=== PATIENT | male | born 1980 | race Caucasian/White ===

== ENCOUNTER → 2025-01-30 | Outpatient (CLI) | payer OTHER, SELFPAY ==
--- OUTSIDE RECORDS SUMMARY | 2025-01-30 07:18 | XMS RPT_ITS | CCD ---
Author Organization [facility] Inform ion Partnership [facility] Care Team Providers Care Obstetric Anaesthetist Name Role Phone Unavailable Primary Care Provider Unavailabl e Medications Current Medications Medication Drug Class(es) Dates Sig (Normalized) Sig (Original) Loratadine (1 source) LORATADINE (CLAR ITIN ORAL) Take by mouth. Active Results Test Name Value Interpretation Reference Range Facil ity Urgent Care Visit Reporton 1 Urgent Care Visit Report [facility] [address] [place] [address] 6 [place] [address] OFFICE VISIT Date of Service: 04/07/21 MR#: [id number] Acct: [id number] Name: ROCAEL HEART Rep #: [id number] : 1980 Provider: DARWIN Spencer Age/Sex: 41/M Location: [facility] Status: Signed Intake Vital Signs 04/07/21 08:19 Height 5 ft 9.5 in Weight: 195 lb BMI 28.3 BP 144/96 H Blood Pressure Location Lt brachial Position Sitting Respiration 15 Pulse 82 Pulse Source Monitor Temp 97.8 F Temp Source Temporal Pulse Oximetry (%) 98 Oxygen Delivery Method room air Intake Visit Reasons: STUFFY NOSE/SORE THROAT/COVID TEST Allergies No Known Allergies Allergy (Unverified 04/07/21 08:20) Medications NK 04/07/21 [History Confirmed 04/07/21] HPI HPI Details: ROCAEL HEART, is a 41 M who presents to the office today for complaint stuffy nose and scratchy throat. Patient states that his child and both tested positive for Covid yesterday. He denies fever, chills, sweats. No cough, shortness of breath or difficulty breathing. No other associated symptoms or alleviating/aggravating factors. ROS Const Constitutional: Positive for other (6 system ROS completed with pertinent findings in the HPI otherwise normal.) Exam Const General: cooperative and well developed HENKY Head: normal to inspection and atraumatic Ears: hearing grossly normal bilaterally Nose: nasal discharge clear Face and sinus: normal facial exam Mouth: oral mucosae normal Throat: abnormal tonsil bilaterally hypertrophy 1+ Resp Effort Inspection: normal respiratory effort and no audible wheezes Auscultation: Bilateral: Clear to Auscultation Cardio Palpation: normal PMI Rate: regular rate Rhythm: regular rhythm Neuro General: patient alert and CN's II-XI intact bilaterally Psych Appearance: grossly normal Mental Status: mental status grossly normal Coding Level of Care Code Off vis,new,level 3 Diagnoses Acute upper respiratory infection J06.9 Assessment and Plan Assessment and Plan (1) Acute upper respiratory infection: Status: Acute Plan - Clark WYATT PA: Patient tested negative for Covid in the office today. Encouraged to get plenty of rest, drink lots of clear liquids, and use Tylenol or Ibuprofen (unless contraindicated) for fever and comfort. Darwin rocha also educated on other symptomatic management techniques. To be seen in 7-10 days if no improvement; sooner if worsening of symptoms. Patient advised of potential red flags and when appropriate to report to the ED. Patient verbalized understanding and agreement with all the above. Plan Details Other Orders: Orders: POC Rapid SARS Antigen Today Z11.52 04/07/21 0833 Date Clark WYATT Cosigner Signature: Date (if applicable) CC: Normal [facility] 03-11-[address] [facility] Telephone (UCWSTR) ROCAEL HEART ([id number]) 1980 M Date Time Provider Department 03/11/21 RADHA LANGLEY [facility] During your visit today, we recorded the following information about you: Radha Langley APRN.CALENDER SUPERVISOR 03/11/2021 8:11 AM Signed Please notify of negative covid test results thank you. Rene Lopez MA 03/11/2021 10:55 AM Signed Patient notified of negative results, verbalized understanding. Rene Lopez MA Allergies As of Date: 03/11/2021 (No Known Allergies) Date Reviewed: 03/10/2021 Reviewed by: Vivian León - Fully Assessed Reason for Visit: Results [95] Prescriptions as of 03/11/2021 - amoxicillin-clavulanic acid (AUGMENTIN) 875-125 mg per tablet Take 1 tablet by mouth twice daily for 10 days. - LORATADINE (CLARITIN ORAL) Take by mouth. Problem List As Of Date: 03/11/2021 (None) Encounter Status:Closed by RENE LOPEZ on 03/11/21 [facility] CNOVon 03-10-2021 CNOV Office Visit (UCWSTR ) ROCAEL HEART ([id number]) 1980 M Date Time Provider Department 03/10/21 9:30 AM MAG FAUST During your visit today, we recorded the following information about you: Temperature Pulse Respiration Blood pressure 96.9 degrees 88/minute 16/minute 182/110 Weight 88 kg Mag Faust APRN.CNP 03/10/2021 10:06 AM Signed SUBJECTIVE Rocael López lSy is a 41 year old male who presents with 2 weeks of symptoms that are stable. Symptoms include: Fever (?100.4F): No or Chills: No Cough: Yes, only in the moring Shortness of breath: No or Difficulty breathing: No Fatigue: No Muscle aches: No Headache: Yes-frontal sinus pain New loss of smell or taste: No Sore throat: No Nasal congestion: Yes or Rhinorrhea: Yes Nausea: No or Vomiting: No Diarrhea: No OTC meds/remedies that patient has tried: pseudoephedrine. High risk category assessment No high risk factors Exposures: Sick contacts? No Family or close contacts with confirmed/probable COVID-19 in last 14 days? No He reports that he has never smoked. He has never used smokeless tobacco. BP 182/110 Pulse 88 Temp 36.1 ?C (96.9 ?F) Resp 16 Wt 88 kg (194 lb) SpO2 96% No past medical history on file. No past surgical history on file. ALLERGIES Patient has no known allergies. MEDICATIONS amoxicillin-clavulanic acid (AUGMENTIN) 875-125 mg per tablet Take 1 tablet by mouth twice daily for 10 days. LORATADINE (CLARITIN ORAL) Take by mouth. No family history on file. Social History Tobacco Use - Smoking status: Never Smoker - Smokeless tobacco: Never Used Vaping Use - Vaping Use: Never used Substance Use Topics - Alcohol use: Not on file - Drug use: Not on file OBJECTIVE Physical Exam Vitals and nursing note reviewed. HENT: Right Ear: Tympanic membrane, ear canal and external ear normal. Left Ear: Tympanic membrane, ear canal and external ear normal. Nose: Nasal tenderness, mucosal edema, congestion and rhinorrhea present. Mouth/Throat: Pharynx: Uvula midline. No oropharyngeal exudate or posterior oropharyngeal erythema. Cardiovascular: Rate and Rhythm: Normal rate and regular rhythm. Heart sounds: Normal heart sounds. Pulmonary: Effort: Pulmonary effort is normal. No respiratory distress. Breath sounds: Normal breath sounds. No wheezing or rales. Musculoskeletal: Cervical back: Neck supple. Lymphadenopathy: Cervical: No cervical adenopathy. Skin: General: Skin is warm and dry. Findings: No erythema or rash. Neurological: Mental Status: He is alert. ASSESSMENT/PLAN ASSESSMENT/PLAN: 1. Acute sinusitis, recurrence not specified, unspecified location - ICD9: 461.9, ICD10: J01.90 (primary diagnosis) - Will begin treatment with Augmentin 875 mg PO BID for 10 days - The patient should also be given flonase and mucinex for the first 5-7 days of treatment. - AMOXICILLIN 875 MG-POTASSIUM CLAVULANATE 125 MG TABLET 2. Elevated blood pressure reading without diagnosis of hypertension - ICD9: 796.2, ICD10: R03.0 - Recheck in 1 week, sooner if needed. - -likely from taking Sudafed, avoid this medication. You may use Coricidin HBP 3. Viral illness - ICD9: 079.99, ICD10: B34.9 - Discussed viral etiology and rationale for treatment. - Symptomatic treatment with prn analgesia - Supportive care with fluids and rest - 2019 CORONAVIRUS Mag Faust APRN.CNP - Meets symptom-based criteria for testing and is low risk. - COVID swab collected at time of office visit - Instructed to isolate pending test results - Discussed symptom monitoring and supportive care - Red flag symptoms requiring follow up discussed This patient encounter involved the screening or treatment of novel coronavirus infection (COVID-19). Mag Faust APRN.CNP 03/10/2021 9:58 AM Addendum ASSESSMENT/PLAN: 1. Acute sinusitis, recurrence not specified, unspecified location - ICD9: 461.9, ICD10: J01.90 (primary diagnosis) - Will begin treatment with Augmentin 875 mg PO BID for 10 days - The patient should also be given flonase and mucinex for the first 5-7 days of treatment. - AMOXICILLIN 875 MG-POTASSIUM CLAVULANATE 125 MG TABLET 2. Elevated blood pressure reading without diagnosis of hypertension - ICD9: 796.2, ICD10: R03.0 - Recheck in 1 week, sooner if needed. - -likely from taking Sudafed, avoid this medication. You may use Coricidin HBP 3. Viral illness - ICD9: 079.99, ICD10: B34.9 - Discussed viral etiology and rationale for treatment. - Symptomatic treatment with prn analgesia - Supportive care with fluids and rest - 2019 CORONAVIRUS Mag Faust APRN.CNP - Meets symptom-based criteria for testing and is low risk. - COVID swab collected at time of office visit - Instructed to isolate pending test results - Discussed symptom monitoring a (more content not included)... Normal [facility] Coronavirus 2019on 1 SARS-CoV-2 (COVID-19) RNA CARLITOS+probe Ql (Unsp spec) UPPER RESPIRATORY TRACT SWAB Normal [facility] Comment on above: Performed By: #### C OVID #### [place] [address] SARS-CoV-2 (COVID-19) RNA CARLITOS+probe Ql (Unsp spec) Negative for COVID19 (SARS CoV2) by RT-PCR or equivalent method. Normal Negative for COVID19 (SARS CoV2) by RT-PCR or equivalent method. [facility] Comment on above: Result Comment: This test was developed and its performance characteristics determined by [facility]'s [facility] [place]. This test has been authorized by FDA under an Emergency Use Authorization (EUA). This test has been validated in accordance with the FDA's Guidance Document Policy for Diagnostics Testing in Laboratories Certified to Perform High Complexity Testing under CLIA prior to Emergency use Authorization for Coronavirus Disease 2019 during the Public Health Emergency issued on June 06, 2019. Test performed by [facility], [facility] [place], [address] [place] [address]. Performed By: #### C OVID #### [place] [address] CNOVon 12-05-2020 CNOV Office Visit (UCWSTR ) ROCAEL HEART ([id number]) 1980 M Date Time Provider Department 12/05/20 7:15 PM ELVIN JOHNSON [facility] During your visit today, we recorded the following information about you: Temperature Pulse Respiration Blood pressure 98.2 degrees 74/minute 16/minute 132/82 Weight 86.4 kg Elvin Johnson APRN.CNP 12/05/2020 8:51 PM Signed Subjective HPI HPI Rocael Heart is a 40 year old male who presents today for CC of left elbow injury 2 weeks ago, started getting red 1 day ago. Has tried nothing for relief. Symptoms are worsened by touching the area. Denies history of surgery or injury to left elbow. Denies numbness/tingling of left arm. .Patient presents with: Pain (Elbow Pain): bursitis LEFT elbow x 1 day No past medical history on file. No past surgical history on file. ALLERGIES Patient has no known allergies. Reviewed MEDICATIONS LORATADINE (CLARITIN ORAL) Take by mouth. reviewed No family history on file. Social History Tobacco Use - Smoking status: Never Smoker - Smokeless tobacco: Never Used Vaping Use - Vaping Use: Never used Substance Use Topics - Alcohol use: Not on file - Drug use: Not on file ROS Objective Blood pressure 132/82, pulse 74, temperature 36.8 ?C (98.2 ?F), temperature source Left Tympanic, resp. rate 16, weight 86.4 kg (190 lb 6.4 oz), SpO2 99 %. Physical Exam Constitutional: General: He is not in acute distress. Appearance: He is not toxic-appearing or diaphoretic. HENT: Head: Normocephalic and atraumatic. Cardiovascular: Pulses: Radial pulses are 2+ on the left side. Pulmonary: Effort: Pulmonary effort is normal. No accessory muscle usage or respiratory distress. Musculoskeletal: Left elbow: Swelling present. No deformity, effusion or lacerations. Normal range of motion. Tenderness present in olecranon process. Comments: Light erythema/warmth over olecranon. Full rom/strength without pain. Neurological: Mental Status: He is alert and oriented to person, place, and time. ASSESSMENT/PLAN: 1. Elbow injury, left, initial encounter - ICD9: 959.3, ICD10: S59.902A Olecranon bursitis Discussed compression, ice, elevation, rest F/u for continued/worsening symptoms. Steroid ordered - XR ELBOW SPECIAL VIEWS AP/LAT/OTHER LT IMPRESSION: Soft tissue prominence over the olecranon area. This could either represent soft tissue swelling and/or fluid within the olecranon bursa. ? ? Dictated by : BERTRAM HART, DO ? - METHYLPREDNISOLONE 4 MG TABLETS IN A DOSE PACK Agrees to plan Declines avs Elvin Johnson APRN.CALENDER SUPERVISOR Referring Provider: SELF [200] Allergies As of Date: 12/05/2020 (No Known Allergies) Date Reviewed: 12/05/2020 Reviewed by: Ashley Wheeler Ma - Fully Assessed Reason for Visit: Pain (Elbow Pain) [1344] Cmt: bursitis LEFT elbow x 1 day Primary Visit Diagnosis:Elbow injury, left, initial encounter [S59.902A] Order(s):XR ELBOW SPECIAL VIEWS AP/LAT/OTHER LT [[id number]] Order #: [id number]. #:[id number] methylPREDNISolone (MEDROL, MANDY,) 4 mg Dose-PackFollow dosing instructions, take with food.Disp: 1 PackageRfl: 0 Prescriptions as of 12/05/2020 - methylPREDNISolone (MEDROL, MANDY,) 4 mg Dose-Pack Follow dosing instructions, take with food. - LORATADINE (CLARITIN ORAL) Take by mouth. Problem List As Of Date: 12/05/2020 (None) Prescriptions ordered this encounter Disp Refills Start End METHYLPREDNISOLONE 4 MG TABLETS IN A* 1 Pa* 0 12/05/2020 12/11/2020 Sig: Follow dosing instructions, take with food. Encounter Status:Closed by ELVIN JOHNSON on 12/05/20 Normal [facility] XR ELBOW 3V AP/LAT/OTHER LTo n 12-05-2020 XR ELBOW 3V AP/LAT/OTHER LT * * *Final Report* * * DATE OF EXAM: Dec 05 2020 8:09PM WOX 5324 - XR ELBOW 3V AP/LAT/OTHER LT / PROCEDURE REASON: Elbow injury, left, initial encounter * * * * Physician Interpretation * * * * LEFT elbow EXAM DATE/TIME: 12/05/2020 8:09 PM HISTORY: 40 years old Clinical information: Elbow injury, left, initial encounter Left posterior elbow pain increasing as of last night but hit it against something 2 weeks ago. TECHNIQUE: Images: XR ELBOW 3V AP/LAT/OTHER LT Comparison: None. RESULT: Findings: Bone density appears well-preserved. No fractures or dislocations are seen. Soft tissue swelling and/or fluid within the olecranon bursa noted IMPRESSION: Soft tissue prominence over the olecranon area. This could either represent soft tissue swelling and/or fluid within the olecranon bursa. Oyster Floater: JULIA Transcribe Date/Time: Dec 05 2020 8:15P Dictated by : BERTRAM HART DO This examination was interpreted and the report reviewed and electronically signed by: BERTRAM HART DO on Dec 05 2020 8:16PM EST [id number] Normal [facility] XR Elbow - left AP and Later al and obliqueon 12-05-2020 IMPRESSION: Soft tissue prominence over the olecranon area. This could either represent soft tissue swelling and/or fluid within the olecranon bursa. Oyster Floater: JULIA Transcribe Date/Time: Dec 05 2020 8:15P Dictated by : BERTRAM HART DO This examination was interpreted and the report reviewed and electronically signed by: BERTRAM HART DO on Dec 05 2020 8:16PM EST DIVISION OF RADIOLOGY * * *Final Report* * * DATE OF EXAM: Dec 05 2020 8:09PM WOX 5324 - XR ELBOW 3V AP/LAT/OTHER LT / PROCEDURE REASON: Elbow injury, left, initial encounter * * * * Physician Interpretation * * * * LEFT elbow EXAM DATE/TIME: 12/05/2020 8:09 PM HISTORY: 40 years old Clinical information: Elbow injury, left, initial encounter Left posterior elbow pain increasing as of last night but hit it against something 2 weeks ago. TECHNIQUE: Images: XR ELBOW 3V AP/LAT/OTHER LT Comparison: None. RESULT: Findings: Bone density appears well-preserved. No fractures or dislocations are seen. Soft tissue swelling and/or fluid within the olecranon bursa noted DIVISION OF RADIOLOGY Provider, [facility] - 12/05/2020 * * *Final Report* * * DATE OF EXAM: Dec 05 2020 8:09PM WOX 5324 - XR ELBOW 3V AP/LAT/OTHER LT / PROCEDURE REASON: Elbow injury, left, initial encounter * * * * Physician Interpretation * * * * LEFT elbow EXAM DATE/TIME: 12/05/2020 8:09 PM HISTORY: 40 years old Clinical information: Elbow injury, left, initial encounter Left posterior elbow pain increasing as of last night but hit it against something 2 weeks ago. TECHNIQUE: Images: XR ELBOW 3V AP/LAT/OTHER LT Comparison: None. RESULT: Findings: Bone density appears well-preserved. No fractures or dislocations are seen. Soft tissue swelling and/or fluid within the olecranon bursa noted IMPRESSION IMPRESSION: Soft tissue prominence over the olecranon area. This could either represent soft tissue swelling and/or fluid within the olecranon bursa. Oyster Floater: PSCB Transcribe Date/Time: Dec 05 2020 8:15P Dictated by : BERTRAM HART DO This examination was interpreted and the report reviewed and electronically signed by: BERTRAM HART DO on Dec 05 2020 8:16PM EST [facility] Radiology Study observation (narrative) [facility] XR Elbow - left AP and Later al and obliqueOrdered By: Ccf Provider on 12-05-2020 [facility] Encounters Encounter Date Encounter Type Care Provider Facility Start: 12-05-2020 End: 12-05-2020 Subsequent hospital visit by physician [facility] [place] Work Phone: Radiology Comment on above: Elbow injury, left, initial encounter [S59.902A] Procedures Date Procedure Procedure Detail Performing Clinician Start: 12-05-2020 Radex elbow complete minimum 3 views Elvin Johnson APRN.CNP Work Phone: Plan of Treatment Date Care Activity Detail Author Start: 11-02-2025 Urine microalbumin profile DTa P,Tdap,Td Vaccine (2 - Td or Tdap) [facility] Start: 12-08-2023 Covid-19 Vaccine ( season) Covid-19 Vaccine ( season) [facility] Start: 12-08-2023 Influenza vaccination Influenza Vacc ine (#1) [facility] Start: 2015 Lipid panel Lipid Screening [facility] Start: 1999 Hepatitis B Vaccine (1 of 3 - 19+ 3-dose series) Hepatitis B Vaccine (1 of 3 - 19+ 3-dose series) [facility] Start: 1998 Anxiety Screening Anxiety Screening [facility] Start: 1998 Depression Screening Depression Scre ening [facility] Start: 1998 Hepatitis C screening Hepatitis C Sc robert [facility] Start: 1998 HIV screening HIV Screening [facility] Immunizations Immunization Date Immunization Notes Care Provider Reyna joepete 11-03-2015 tetanus toxoid, redu faustino diphtheria toxoid, and acellular pertussis vaccine, adsorbed Xr [place] Work Phone: [facility] Payers Date Payer Category Payer Unknown MMO [employer] PPO [id number] 2018-Present [phone] [address] [place] [address] PPO [id number] Social History Date Type Detail Facility Start: 04-06-2014 Tobacco smoking stat [facility] Never smoked tobacco [facility] Start: 04-06-2014 Tobacco use and exposure Smoke less tobacco non-user [facility] Start: 12-05-2020 Alcoholic beverage intake Not Asked [facility] Start: 03-15-2020 End: 12-05-2020 History of Social function [facility] Start: 03-15-2020 End: 12-05-2020 Tobacco use panel [facility] National Score (1-10 0), lower number is lower risk Not on file [facility] Start: 1980 Sex assigned at Not on file [facility] Start: 11-05-2020 End: 12-05-2020 Exposure to SARS-CoV-2 (event) Not sure [facility] Progress note 03-10-2021 Note Date & Type Note Facility 03-10-2021 Note HNO ID: [id number] Author: Mag Faust APRN.CALENDER SUPERVISOR Service: ? Author Type: Nurse Practitioner Type: Progress Notes Filed: 03/10/2021 10:06 AM Note Text: JC Heart is a 41 year old male who presents with 2 weeks of symptoms that are stable. Symptoms include: Fever (?100.4F): No or Chills: No Cough: Yes, only in the moring Shortness of breath: No or Difficulty breathing: No Fatigue: No Muscle aches: No Headache: Yes-frontal sinus pain New loss of smell or taste: No Sore throat: No Nasal congestion: Yes or Rhinorrhea: Yes Nausea: No or Vomiting: No Diarrhea: No OTC meds/remedies that patient has tried: pseudoephedrine. High risk category assessment No high risk factors Exposures: Sick contacts? No Family or close contacts with confirmed/probable COVID-19 in last 14 days? No He reports that he has never smoked. He has never used smokeless tobacco. BP 182/110 Pulse 88 Temp 36.1 ?C (96.9 ?F) Resp 16 Wt 88 kg (194 lb) SpO2 96% No past medical history on file. No past surgical history on file. ALLERGIES Patient has no known allergies. MEDICATIONS amoxicillin-clavulanic acid (AUGMENTIN) 875-125 mg per tablet Take 1 tablet by mouth twice daily for 10 days. LORATADINE (CLARITIN ORAL) Take by mouth. No family history on file. Social History Tobacco Use - Smoking status: Never Smoker - Smokeless tobacco: Never Used Vaping Use - Vaping Use: Never used Substance Use Topics - Alcohol use: Not on file - Drug use: Not on file OBJECTIVE Physical Exam Vitals and nursing note reviewed. HENT: Right Ear: Tympanic membrane, ear canal and external ear normal. Left Ear: Tympanic membrane, ear canal and external ear normal. Nose: Nasal tenderness, mucosal edema, congestion and rhinorrhea present. Mouth/Throat: Pharynx: Uvula midline. No oropharyngeal exudate or posterior oropharyngeal erythema. Cardiovascular: Rate and Rhythm: Normal rate and regular rhythm. Heart sounds: Normal heart sounds. Pulmonary: Effort: Pulmonary effort is normal. No respiratory distress. Breath sounds: Normal breath sounds. No wheezing or rales. Musculoskeletal: Cervical back: Neck supple. Lymphadenopathy: Cervical: No cervical adenopathy. Skin: General: Skin is warm and dry. Findings: No erythema or rash. Neurological: Mental Status: He is alert. ASSESSMENT/PLAN ASSESSMENT/PLAN: 1. Acute sinusitis, recurrence not specified, unspecified location - ICD9: 461.9, ICD10: J01.90 (primary diagnosis) - Will begin treatment with Augmentin 875 mg PO BID for 10 days - The patient should also be given flonase and mucinex for the first 5-7 days of treatment. - AMOXICILLIN 875 MG-POTASSIUM CLAVULANATE 125 MG TABLET 2. Elevated blood pressure reading without diagnosis of hypertension - ICD9: 796.2, ICD10: R03.0 - Recheck in 1 week, sooner if needed. - -likely from taking Sudafed, avoid this medication. You may use Coricidin HBP 3. Viral illness - ICD9: 079.99, ICD10: B34.9 - Discussed viral etiology and rationale for treatment. - Symptomatic treatment with prn analgesia - Supportive care with fluids and rest - 2019 CORONAVIRUS Mag Faust APRN.CALENDER SUPERVISOR - Meets symptom-based criteria for testing and is low risk. - COVID swab collected at time of office visit - Instructed to isolate pending test results - Discussed symptom monitoring and supportive care - Red flag symptoms requiring follow up discussed This patient encounter involved the screening or treatment of novel coronavirus infection (COVID-19). [facility] Progress note 12-05-2020 Note Date & Type Note Facility 12-05-2020 Note HNO ID: [id number] Author: Elvin Johnson APRN.CALENDER SUPERVISOR Service: ? Author Type: Nurse Practitioner Type: Progress Notes Filed: 12/05/2020 8:51 PM Note Text: Subjective HPI HPI Rocael Heart is a 40 year old male who presents today for CC of left elbow injury 2 weeks ago, started getting red 1 day ago. Has tried nothing for relief. Symptoms are worsened by touching the area. Denies history of surgery or injury to left elbow. Denies numbness/tingling of left arm. .Patient presents with: Pain (Elbow Pain): bursitis LEFT elbow x 1 day No past medical history on file. No past surgical history on file. ALLERGIES Patient has no known allergies. Reviewed MEDICATIONS LORATADINE (CLARITIN ORAL) Take by mouth. reviewed No family history on file. Social History Tobacco Use - Smoking status: Never Smoker - Smokeless tobacco: Never Used Vaping Use - Vaping Use: Never used Substance Use Topics - Alcohol use: Not on file - Drug use: Not on file ROS Objective Blood pressure 132/82, pulse 74, temperature 36.8 ?C (98.2 ?F), temperature source Left Tympanic, resp. rate 16, weight 86.4 kg (190 lb 6.4 oz), SpO2 99 %. Physical Exam Constitutional: General: He is not in acute distress. Appearance: He is not toxic-appearing or diaphoretic. HENT: Head: Normocephalic and atraumatic. Cardiovascular: Pulses: Radial pulses are 2+ on the left side. Pulmonary: Effort: Pulmonary effort is normal. No accessory muscle usage or respiratory distress. Musculoskeletal: Left elbow: Swelling present. No deformity, effusion or lacerations. Normal range of motion. Tenderness present in olecranon process. Comments: Light erythema/warmth over olecranon. Full rom/strength without pain. Neurological: Mental Status: He is alert and oriented to person, place, and time. ASSESSMENT/PLAN: 1. Elbow injury, left, initial encounter - ICD9: 959.3, ICD10: S59.902A Olecranon bursitis Discussed compression, ice, elevation, rest F/u for continued/worsening symptoms. Steroid ordered - XR ELBOW SPECIAL VIEWS AP/LAT/OTHER LT IMPRESSION: Soft tissue prominence over the olecranon area. This could either represent soft tissue swelling and/or fluid within the olecranon bursa. ? ? Dictated by : BERTRAM HART DO ? - METHYLPREDNISOLONE 4 MG TABLETS IN A DOSE PACK Agrees to plan Declines avs Elvin Johnson APRN.[employer] [facility] Progress note 12-05-2020 Note Date & Type Note Facility 12-05-2020 Note HNO ID: [id number] Author: RT David(R) Service: ? Author Type: Director Outpatient Services Type: Progress Notes Filed: 12/05/2020 8:10 PM Note Text: Radiology Service Progress Note PATIENT NAME: Rocael Heart DATE OF SERVICE: December 05, 2020 TIME: 8:04 PM PATIENT IDENTITY VERIFICATION COMPLETED USING TWO (2) IDENTIFIERS: Name and Date of confirmed by patient verbally. FALL SCREENING: Has the patient had 2 falls in the last year or 1 fall with injury or currently using an Ambulatory Assistive Device (Walker, Cane, Wheelchair, Crutches, etc.)? No PATIENT GENDER DATA: Male PATIENT RELEVANT IMPLANT DATA REVIEWED: Yes RADIOLOGY DEPARTMENT: General X-ray: Exam(s) Completed: Upper Extremity X-Ray(s): Elbow, left PERIPHERAL IV DATA: Not applicable SIGNED BY: RT David(R) December 05, 2020 8:04 PM [facility] History of Present illness Narrative 12-05-2020 Catie Gonzalez RT(R) - 12/05/2020 8:00 PM EDT Note Date & Type Note Facility 12-05-2020 History of Presen t illness Narrative Radiology Service Progress Note PATIENT NAME: Rocael Heart DATE OF SERVICE: December 05, 2020 TIME: 8:04 PM PATIENT IDENTITY VERIFICATION COMPLETED USING TWO (2) IDENTIFIERS: Name and Date of confirmed by patient verbally. FALL SCREENING: Has the patient had 2 falls in the last year or 1 fall with injury or currently using an Ambulatory Assistive Device (Walker, Cane, Wheelchair, Crutches, etc.)? No PATIENT GENDER DATA: Male PATIENT RELEVANT IMPLANT DATA REVIEWED: Yes RADIOLOGY DEPARTMENT: General X-ray: Exam(s) Completed: Upper Extremity X-Ray(s): Elbow, left PERIPHERAL IV DATA: Not applicable SIGNED BY: RT David(R) December 05, 2020 8:04 PM documented in this encounter [facility] Reason for visit Narrative Diagnostic Procedure Only (Urgent) - Closed Note Date & Type Note Facility Reason for visit Narrative Specialty Diagnoses / Procedures Referred By Anastacia schaffer Referred To Contact XR IMAGING Diagnoses Elbow injury, left, initial encounter Procedures XR ELBOW SPECIAL VIEWS AP/LAT/OTHER LT X-RAY ELBOW MINIMUM 3 VIEWS Elvin Johnson APRN.[employer] SUPERVISOR [address] [place] [address] [place] [id number] Referral ID Status Reason Start Date Expiration Date V isits Requested Visits Authorized Closed Auto-Generate d Referral 12/05/2020 01/04/2022 1 1 [facility] Summary Purpose Family History No Family History Records FoundNo Family History Records Found Advance Directives No Advanced Directives Records FoundNo Advanced Directives Records Found Additional Source Comments (unrecognized sect ion and content) No Status Records FoundNo Status Records Found INFORMATION SOURCE (unrecogn ized section and content) DATE CREATED AUTHOR 04/07/2021 [facility] DATE CREATED AUTHOR AUTHOR'S ORGANIZ ATION 05/04/2021 [facility] Source Comments (unrecognize d section and content) In the event this informatio n is protected by the Federal Confidentiality of Alcohol and Drug Abuse Patient Records regulations: The Federal rules restrict any use of the information to criminally investigate or prosecute any alcohol or drug abuse patient.[facility] FOR RECORDS PERTAINING TO PATIENTS WHO ARE OR HAVE BEEN ENROLLED IN A CHEMICAL DEPENDENCY/SUBSTANCEABUSE PROGRAM, SOME INFORMATION MAY BE OMITTED. This clinical summary was aggregated from multiple sources. Caution should be exercised in using it in the provision of clinical care. This summary normalizes information from multiple sources, and as a consequence, information in this document may materially change the coding, format and clinical context of patient data. In addition, data may be omitted in some cases. CLINICAL DECISIONS SHOULD BE BASED ON THE PRIMARY CLINICAL RECORDS. [facility]. provides no warranty or guarantee of the accuracy or completeness of information in this document.
[2025-01-30 07:47] LABS: Hematocrit 48.2 % (40-54); Hemoglobin 15.9 g/dL (13.0-16.5); Immature Granulocytes Count 0.010 X10^3/uL (0.0-0.0); Mean Corp Hgb Conc 33.0 g/dL (32-36); Mean Corpuscular Volume 86.5 fL (80-94); Mean Platelet Vol. 9.2 fl (6.2-12.0); NRBC Flagged by Analyzer 0 % (0-5); Platelet Count 351 K/mm3 (150-450); RBC Distribution Width CV 13.0 % (11.6-14.6); RBC Distribution Width SD 40.7 fl (35.1-43.9); Red Blood Count 5.57 M/mm3 (4.6-6.2); White Blood Count 6.0 K/mm3 (4.4-11.0)
[2025-01-30 08:16] LABS: AST(SGOT) 22 U/L (<=37); Alanine Aminotransfer ALT/SGPT 17 U/L (<=46); Albumin, Serum 4.4 g/dL (3.5-5.0); Alkaline Phosphatase 72 U/L (40-129); Anion Gap 10 (5-15); BUN 13 mg/dL (4-19); BUN/Creat Ratio 11.3 RATIO (10-20); Calcium,Total 9.3 mg/dL (7.6-11.0); Carbon Dioxide 24.8 mmol/L (21.0-32.0); Chloride 104 mmol/L (98-108); Cholesterol 180 mg/dL (<=200); Globulin 3.1 g/dL (2.2-4.2); Glucose 113 mg/dL (70-99); Low Density Lipoprotein Calc. 111 mg/dL; PSA,Total - Annual Screen 0.64 ng/mL (0.02-4.00); Potassium 4.4 mmol/L (3.3-5.1); Triglycerides 112 mg/dL; Very Low Density Lipoprotein 22 mg/dL (5-40); cholesterol:hdl ratio screen 3.71
== END | disposition home or self-care (01) ==
LOC: LAB 07:15
PROVIDERS: PCP Nurse Practitioner Family; Referring Provider Nurse Practitioner Family; Visit Provider Nurse Practitioner Family
DX: Z00.01 Encounter for general adult medical examination with abnormal findings (principal); R73.01 Impaired fasting glucose; Z12.5 Encounter for screening for malignant neoplasm of prostate
CPT/HCPCS: 36415; 80053; 80061; 83036; 84153; 85025; G0103